=== PATIENT | female | born 1975 | race American Indian/Alaskan Native ===

== ENCOUNTER 2017-03-27 23:23 | Observation (INO) | payer SELFPAY ==
--- NOTE | 2017-03-27 23:45 | ED PDOC ---
HPI: Psych/Substance Abuse Time Seen by Provider: 03/27/17 23:44 Chief Complaint (Nursing): Psychiatric Evaluation Chief Complaint (Provider): staring and not talking ED Caveat: Altered Mental Status Additional Complaint(s): No history obtainable from pt. Refusing to answer questions. EMS reports that she had been sitting in [employer] all day and when they tried to close, she did not get up and she did not leave or talk. Past Medical History Reviewed: Nursing Documentation, Vital Signs, Unable To Obtain (Pt not giving any history) Vital Signs: Last Vital Signs Temp 98 F 03/27/17 23:31 Pulse 108 H 03/27/17 23:31 Resp 18 03/27/17 23:31 BP 136/83 03/27/17 23:31 Pulse Ox 100 03/27/17 23:31 - Family History Family History: States: Unknown Family Hx - Allergies Allergies/Adverse Reactions: Allergies Allergy/AdvReac Type Severity Reaction Status Date / Time No Known Allergies Allergy Verified 01/04/17 23:22 Review of Systems Review Of Systems: ROS cannot be obtained secondary to pt's inabilty to answer questions. (unable to determine if pt unable to answer or refusing to answer any questions) Physical Exam - Reviewed Nursing Documentation Reviewed: Yes Vital Signs Reviewed: Yes - Physical Exam Appears: Positive for: Non-toxic, No Acute Distress Head Exam: Positive for: ATRAUMATIC, NORMOCEPHALIC Skin: Positive for: Warm, Dry Eye Exam: Positive for: EOMI, PERRL ENT: Positive for: Normal ENT Inspection Neck: Positive for: Painless ROM, Supple, Trachea Midline Cardiovascular/Chest: Positive for: Chest Non Tender, Tachycardia (regular rhythm) Respiratory: Positive for: Normal Breath Sounds. Negative for: Respiratory Distress Gastrointestinal/Abdominal: Positive for: Soft. Negative for: Tenderness Back: Positive for: Normal Inspection. Negative for: Vertebral Tenderness Extremity: Negative for: Pedal Edema, Deformity Lymphatic: Negative for: Adenopathy Neurologic/Psych: Positive for: Alert, Mood/Affect (flat, uncooperative with questioning). Negative for: Motor/Sensory Deficits - Laboratory Results Result Diagrams: 03/28/17 00:03 03/28/17 00:03 - ECG O2 Sat by Pulse Oximetry: 100 Disposition - Clinical Impression Clinical Impression: Mood disorder - Disposition Disposition: Transfer of Care Disposition Time: 00:00 Condition: STABLE Patient Signed Over To: Hermes Sim Y Handoff Comments: Pending ER workup, crisis eval, reassessment and final ER dispo
[2017-03-28 00:34] LABS: ALB/GLOB RATIO 1.3 (1.0-2.1); ALBUMIN 4.5 g/dL (3.5-5.0); ALT/SGPT 33 U/L (9-52); AST/SGOT 27 U/L (14-36); BLOOD UREA NITROGEN 12 mg/dl (7-17); CALCIUM 9.4 mg/dL (8.4-10.2); GFR AFRICAN-AMERICAN > 60; GFR NON-AFRICAN AMERICAN > 60
[2017-03-28] MEDS ORDERED: Potassium Chloride 20 mEq ER Tab PO ONE ×2 (01:09→01:13)
--- NOTE | 2017-03-28 01:56 | ED PDOC ---
- Laboratory Results Result Diagrams: 03/28/17 00:03 03/28/17 00:03 - ECG O2 Sat by Pulse Oximetry: 100 (RA) Pulse Ox Interpretation: Normal Medical Decision Making Medical Decision Making: Time:24:00 Patient was transferred to [place] from Chinyere Vásqeuz MD. Pending bed at [facility]. Time:01:13 Bloodwork shows potassium is slightly low Time: 00:51 CT head without IV contrast FINDINGS: Brain: No acute intracranial hemorrhage. No significant white matter disease. No edema. Ventricles: No significant ventriculomegaly. Bones: No acute displaced fracture. Sinuses: Unremarkable as visualized. No acute sinusitis. Mastoid air cells: Unremarkable as visualized. No mastoid effusion. IMPRESSION: No acute intracranial hemorrhage, or suspicious mass effect --Patient is medically cleared for crisis evaluation Time:04:37 --Patient to be screened by [facility]. Pending screening. Time:07:00 --Patient is transferred to dr li. Pending bed at [facility]. Scribe Attestation: Documented by Margoth Rodríguez, acting as a scribe for Hermes Sim MD. Provider Scribe Attestation: All medical record entries made by the Scribe were at my direction and personally dictated by me. I have reviewed the chart and agree that the record accurately reflects my personal performance of the history, physical exam, medical decision making, and the department course for this patient. I have also personally directed, reviewed, and agree with the discharge instructions and disposition. Disposition - Clinical Impression Clinical Impression: Mood disorder - POA Present On Arrival: None - Disposition Disposition: Transfer of Care Disposition Time: 07:00 Condition: STABLE Patient Signed Over To: Miguel Li
[2017-03-28 02:26] LABS: BASO % 0.6 % (0.0-2.0); EOS % 0.9 % (0.0-4.0); HEMOGLOBIN 12.5 g/dL (12.0-16.0); LYMPH # 1.4 K/uL (1.0-4.3); LYMPH % 28.7 % (20.0-40.0); MEAN CELL VOLUME 88.6 fl (81.0-99.0); MEAN CORPUSCULAR HEMOGLOBIN 29.8 pg (27.0-31.0); MEAN CORPUSCULAR HGB CONC 33.7 g/dL (33.0-37.0); MEAN PLATELET VOLUME 8.4 fl (7.2-11.7); MONO # 0.5 K/uL (0.0-0.8); MONO % 9.8 % (0.0-10.0); NEUT # 2.9 K/uL (1.8-7.0); RBC 4.2 Mil/uL (3.80-5.20); RED CELL DISTRIBUTION WIDTH 14.3 % (11.5-14.5); WHITE BLOOD COUNT 4.9 K/uL (4.8-10.8)
[2017-03-28 03:49] LABS: BARBITURATES, UR NEGATIVE (NEGATIVE); BENZODIAZEPINES, UR NEGATIVE (NEGATIVE); OPIATES, UR NEGATIVE (NEGATIVE); PHENCYCLIDINE, UR NEGATIVE (NEGATIVE)
--- NOTE | 2017-03-28 07:17 | ED PDOC ---
- Laboratory Results Result Diagrams: 03/28/17 00:03 03/28/17 00:03 - ECG O2 Sat by Pulse Oximetry: 100 Medical Decision Making Medical Decision Makin:00 Patient signed out to me by Dr. Sim. Pending Bed at [facility] [place]. Disposition - Clinical Impression Clinical Impression: Encounter for medical clearance for patient hold - POA Present On Arrival: None - Disposition Disposition: Transfer of Care Disposition Time: 10:52 Patient Signed Over To: Delvin Londono
[2017-03-28 08:49] VITALS: RESP 20
[2017-03-28 09:14] LABS: URINE APPEARANCE CLOUDY (CLEAR); URINE COLOR AMBER (YELLOW); URINE GLUCOSE (UA) NEGATIVE (Normal)
[2017-03-28 09:15] LABS: URINE BILIRUBIN NEGATIVE (NEGATIVE); URINE BLOOD LARGE (NEGATIVE); URINE PROTEIN 100 mg/dL (NEGATIVE)
[2017-03-28 09:16] LABS: URINE LEUKOCYTE ESTERASE SMALL Leu/uL (Negative); URINE NITRATE NEGATIVE (NEGATIVE)
[2017-03-28 09:17] LABS: SQUAMOUS EPITHIAL 18 /hpf (0-5)
[2017-03-28 09:18] LABS: URINE AMORPHOUS SEDIMENT OCC /ul (<OCC); URINE BACTERIA OCC (<OCC)
[2017-03-28] MEDS ORDERED: Tmp-Smz 800 mg-160 mg DS Tab PO STA (09:22)
[2017-03-28] MEDS ORDERED: Tmp-Smz 800 mg-160 mg DS Tab ONE (09:27)
--- NOTE | 2017-03-28 10:32 | CT ---
PROCEDURE: CT HEAD WITHOUT CONTRAST. HISTORY: ams COMPARISON: None available. TECHNIQUE: Axial computed tomography images were obtained through the head/brain without intravenous contrast. Radiation dose: Total exam DLP = 831.59 mGy-cm. This CT exam was performed using one or more of the following dose reduction techniques: Automated exposure control, adjustment of the mA and/or kV according to patient size, and/or use of iterative reconstruction technique. FINDINGS: HEMORRHAGE: No intracranial hemorrhage. BRAIN: No mass effect or edema. No atrophy or chronic microvascular ischemic changes. VENTRICLES: Unremarkable. No hydrocephalus. CALVARIUM: Unremarkable. PARANASAL SINUSES: Mild mucosal thickening seen in the 1 or 2 left ethmoid air cells. . MASTOID AIR CELLS: Unremarkable as visualized. No inflammatory changes. OTHER FINDINGS: None. IMPRESSION: No acute intracranial hemorrhage.
--- NOTE | 2017-03-28 11:00 | ED PDOC ---
- Laboratory Results Result Diagrams: 03/28/17 00:03 03/28/17 00:03 - ECG O2 Sat by Pulse Oximetry: 100 - Progress ED Course And Treament: 1059: Pending [facility] [place]. 1400: Stable. AAOx3. Does not meet admit criteria by [facility] screener. Will dc. Disposition - Clinical Impression Clinical Impression: Hypokalemia, Mood disorder - POA Present On Arrival: None - Disposition Disposition: Routine/Home Disposition Time: 14:01 Condition: STABLE
--- NOTE | 2017-03-28 11:17 | RAD ---
HISTORY: psych screen COMPARISON: KeyNo prior. TECHNIQUE: Chest PA and lateral FINDINGS: LUNGS: No focal consolidation. There does appear to be some minor localized tenting of the mid aspect left hemidiaphragm associated with adjacent minimal parenchymal scarring PLEURA: No significant pleural effusion identified. No pneumothorax apparent. CARDIOVASCULAR: Normal. OSSEOUS STRUCTURES: Minor multilevel degenerative spondylosis of the thoracic spine questionable side bending to the right versus minimal levoscoliosis centered in the upper thoracic region VISUALIZED UPPER ABDOMEN: Normal. OTHER FINDINGS: None. IMPRESSION: No focal consolidation. There does appear to be some minor localized tenting of the mid aspect left hemidiaphragm associated with adjacent minimal parenchymal scarring
[2017-03-28 14:39] VITALS: BP 110/78; PULSE 78; TEMP 97.7
[2017-03-28 15:41] VITALS: O2SAT 100
--- NOTE | 2017-03-29 06:50 | CARD ---
APPROVED REPORT EKG Measurement Heart [id number] <Conclusion> Normal sinus rhythm Normal ECG
== END 2017-03-28 14:38 | disposition home or self-care (01) ==
LOC: H.ER 23:23 → H.EROBSV 03-28 04:36
PROVIDERS: ADMIT Psychiatry & Neurology Psychiatry; ATTEND Psychiatry & Neurology Psychiatry
DX: F39 Unspecified mood [affective] disorder (principal); E87.6 Hypokalemia
CPT/HCPCS: 70450; 71020; 80053; 81003; 81025; 82948; 85025; 93005; 99285; G0378; G0480

== ENCOUNTER 2017-03-29 18:35 | Inpatient (IN) | payer SELFPAY ==
[2017-03-29 18:39] VITALS: RESP 18; O2SAT 100
--- NOTE | 2017-03-29 19:40 | ED PDOC ---
HPI: Psych/Substance Abuse Time Seen by Provider: 03/29/17 18:42 Chief Complaint (Nursing): Psychiatric Evaluation Chief Complaint (Provider): Crisis evaluation History Per: Patient History/Exam Limitations: no limitations Additional Complaint(s): The pt is a 41yo female, brought to the ED by EMS for evaluation of strange behaviour. [place]; she currently denies any alcohol use, drug use. Patient was recently seen in the ED for psychosis. She denies any suicidal or homicidal ideation. Of note, while interviewing, pt started to speak in another languae and would not answer what language she was speaking in. Past Medical History Reviewed: Historical Data, Nursing Documentation, Vital Signs Vital Signs: Last Vital Signs Temp 98.1 F 03/29/17 18:37 Pulse 108 H 03/29/17 18:37 Resp 18 03/29/17 18:37 BP 112/89 03/29/17 18:37 Pulse Ox 100 03/29/17 18:37 - Medical History PMH: Denies: Diabetes, Hepatitis, HIV, HTN, Seizures, Sexually Transmitted Disease - Family History Family History: States: Unknown Family Hx - Allergies Allergies/Adverse Reactions: Allergies Allergy/AdvReac Type Severity Reaction Status Date / Time No Known Allergies Allergy Verified 01/04/17 23:22 Review of Systems Psych: Negative for: Suicidal ideation, Other (homicidal ideation) Physical Exam - Reviewed Nursing Documentation Reviewed: Yes Vital Signs Reviewed: Yes - Physical Exam Appears: Positive for: No Acute Distress Head Exam: Positive for: ATRAUMATIC, NORMAL INSPECTION, NORMOCEPHALIC Skin: Positive for: Normal Color Eye Exam: Positive for: Normal appearance Neck: Positive for: Normal Cardiovascular/Chest: Positive for: Regular Rate, Rhythm Respiratory: Negative for: Respiratory Distress Extremity: Positive for: Normal ROM. Negative for: Deformity, Swelling Neurologic/Psych: Positive for: Alert. Negative for: Motor/Sensory Deficits - Laboratory Results Result Diagrams: 03/29/17 20:00 03/29/17 20:00 - ECG O2 Sat by Pulse Oximetry: 100 (RA) Pulse Ox Interpretation: Normal Medical Decision Making Medical Decision Making: Time: Impression: Psychosis Ddx include schizophrenia, delusional psychosis, malingering Plan: -- Crisis evaluation - previous note reviewed, pt was evaluated at prior visit and was screened for involuntary admission; did not meet criteria so was d/c home. -- Bloodwork -- ED Urine Dipstick -- Reassess No clinically significant lab abnormalities. Medically stable for psychiatric hospitalization Scribe Attestation: Documented by Danelle Du acting as a scribe for Chinyere Vásquez MD. Provider Attestation: All medical record entries made by the Scribe were at my direction and personally dictated by me. I have reviewed the chart and agree that the record accurately reflects my personal performance of the history, physical exam, medical decision making, and the department course for this patient. I have also personally directed, reviewed, and agree with the discharge instructions and disposition. ED OBSERVATION Date of observation admission: 03/29/17 Time of observation admission: 20:45 - Observation admission statement Patient is being placed in observation because:: Pt awaiting [facility] screening. - Progress Note Progress Note: Pt medically stable. 12am Endorsed to Dr Gaxiola. Pending [facility] evaluation. Disposition - Clinical Impression Clinical Impression: Mood disorder - Patient ED Disposition Is Patient to be Admitted: Transfer of Care - Disposition Disposition Time: 20:45 Condition: STABLE
[2017-03-29 20:16] LABS: BASO % 0.5 % (0.0-2.0); EOS # 0.1 K/uL (0.0-0.7); EOS % 1.4 % (0.0-4.0); LYMPH # 1.5 K/uL (1.0-4.3); LYMPH % 24.4 % (20.0-40.0); MEAN CELL VOLUME 89.3 fl (81.0-99.0); MEAN CORPUSCULAR HEMOGLOBIN 28.9 pg (27.0-31.0); MEAN CORPUSCULAR HGB CONC 32.3 g/dL (33.0-37.0); MEAN PLATELET VOLUME 7.9 fl (7.2-11.7); MONO # 0.5 K/uL (0.0-0.8); MONO % 8.7 % (0.0-10.0); NEUT # 3.9 K/uL (1.8-7.0); NRBC % 0.1 % (0.0-0.0); RBC 4.52 Mil/uL (3.80-5.20); RED CELL DISTRIBUTION WIDTH 14.4 % (11.5-14.5)
[2017-03-29 20:25] LABS: SALICYLATE < 1.0 mg/dl
[2017-03-29 20:26] LABS: ACETAMINOPHEN < 10.0 ug/ml (10.0-30.0); ALB/GLOB RATIO 1.2 (1.0-2.1); ALBUMIN 4.8 g/dL (3.5-5.0); ALT/SGPT 47 U/L (9-52); AST/SGOT 27 U/L (14-36); BLOOD UREA NITROGEN 13 mg/dl (7-17); CALCIUM 9.8 mg/dL (8.4-10.2); GFR AFRICAN-AMERICAN > 60; GFR NON-AFRICAN AMERICAN > 60
[2017-03-29 20:47] LABS: BARBITURATES, UR NEGATIVE (NEGATIVE); BENZODIAZEPINES, UR NEGATIVE (NEGATIVE); OPIATES, UR NEGATIVE (NEGATIVE); PHENCYCLIDINE, UR NEGATIVE (NEGATIVE)
[2017-03-29 20:50] LABS: SQUAMOUS EPITHIAL 3 /hpf (0-5); URINE BACTERIA RARE (<OCC); URINE BILIRUBIN SMALL (NEGATIVE); URINE BLOOD LARGE (NEGATIVE); URINE CLARITY CLOUDY (Clear); URINE COLOR AMBER (YELLOW); URINE GLUCOSE (UA) NEG (Normal); URINE LEUKOCYTE ESTERASE SMALL Leu/uL (Negative); URINE NITRATE NEGATIVE (NEGATIVE); URINE PROTEIN 100 mg/dL (NEGATIVE)
[2017-03-30] MEDS ORDERED: Tmp-Smz 800 mg-160 mg DS Tab PO STA (03:14)
[2017-03-30] MEDS ORDERED: Tmp-Smz 800 mg-160 mg DS Tab ONE (03:21)
--- NOTE | 2017-03-30 05:29 | ED PDOC ---
- Laboratory Results Result Diagrams: 03/29/17 20:00 03/29/17 20:00 - ECG O2 Sat by Pulse Oximetry: 100 (RA) Medical Decision Making Medical Decision Making: [facility] [place] does not meet criteria for screening. Pt. cleared to be discharged. Medically and psychiatrically stable. Disposition - Clinical Impression Clinical Impression: Mood disorder - POA Present On Arrival: None - Disposition Disposition: Routine/Home Disposition Time: 05:29 Condition: STABLE
[2017-03-30 06:34] VITALS: BP 116/74; PULSE 84; TEMP 97.9
== END 2017-03-30 06:20 | disposition home or self-care (01) | DRG 885 ==
LOC: H.ER 18:35 → H.EROBSV 20:44
PROVIDERS: ADMIT Emergency Medicine; ATTEND Emergency Medicine
DX: F39 Unspecified mood [affective] disorder (principal); F29 Unspecified psychosis not due to a substance or known physiological condition

== ENCOUNTER 2017-04-03 03:07 | Observation (INO) | payer SELFPAY ==
[2017-04-03 03:23] VITALS: TEMP 97.6; O2SAT 100
--- NOTE | 2017-04-03 03:59 | ED PDOC ---
HPI: General Adult Time Seen by Provider: 04/03/17 03:42 Chief Complaint (Nursing): Medical Clearance Chief Complaint (Provider): "I just want to sleep" History Per: Patient Additional Complaint(s): Pt found sleeping on a bench by a bystander as per EMS. Pt was found shivering. Pt is undomiciled Pt calm and cooperative with journalists and other writers, offers no complaints. reports that she just needs an indoor space to sleep Past Medical History Reviewed: Nursing Documentation, Vital Signs Vital Signs: Last Vital Signs Temp 97.6 F 04/03/17 03:20 Pulse 104 H 04/03/17 03:20 Resp 18 04/03/17 03:20 BP 115/81 04/03/17 03:20 Pulse Ox 100 04/03/17 03:59 - Medical History PMH: Denies: Diabetes, Hepatitis, HIV, HTN, Seizures, Sexually Transmitted Disease - Surgical History Surgical History: No Surg Hx - Family History Family History: States: Unknown Family Hx - Living Arrangements Living Arrangements: Other - Allergies Allergies/Adverse Reactions: Allergies Allergy/AdvReac Type Severity Reaction Status Date / Time No Known Allergies Allergy Verified 01/04/17 23:22 Review of Systems ROS Statement: Except As Marked, All Systems Reviewed And Found Negative Physical Exam - Reviewed Nursing Documentation Reviewed: Yes Vital Signs Reviewed: Yes - Physical Exam Appears: Positive for: Well, Non-toxic, No Acute Distress Head Exam: Positive for: ATRAUMATIC, NORMAL INSPECTION, NORMOCEPHALIC Skin: Positive for: Normal Color, Warm, DRY Eye Exam: Positive for: EOMI, Normal appearance, PERRL ENT: Positive for: Normal ENT Inspection Neck: Positive for: Normal, Painless ROM Cardiovascular/Chest: Positive for: Regular Rate, Rhythm Respiratory: Positive for: CNT, Normal Breath Sounds Gastrointestinal/Abdominal: Positive for: Normal Exam, Bowel Sounds, Soft Back: Positive for: Normal Inspection Extremity: Positive for: Normal ROM Neurologic/Psych: Positive for: Alert, Oriented - ECG O2 Sat by Pulse Oximetry: 100 Medical Decision Making Medical Decision Making: remained asleep in ED overnight. stable fro discharge in am Disposition - Clinical Impression Clinical Impression: Normal exam - Patient ED Disposition Is Patient to be Admitted: No - Disposition Disposition: Routine/Home Disposition Time: 05:25 Condition: STABLE - POA Present On Arrival: None
[2017-04-03 06:08] VITALS: BP 125/80; PULSE 86; RESP 16
== END 2017-04-03 06:45 | disposition home or self-care (01) ==
LOC: H.ER 03:07 → H.EROBSV 03:59
PROVIDERS: ADMIT Emergency Medicine; ATTEND Emergency Medicine
DX: Z71.1 Person with feared health complaint in whom no diagnosis is made (principal); Z59.0 Homelessness; Z76.5 Malingerer [conscious simulation]
CPT/HCPCS: 99281; G0378

== ENCOUNTER 2017-04-08 23:47 | Emergency (ER) | payer SELFPAY ==
[2017-04-08 23:49] VITALS: BMI 21.2
[2017-04-09 00:02] VITALS: RESP 18; O2SAT 99
--- NOTE | 2017-04-09 02:09 | ED PDOC ---
HPI: Psych/Substance Abuse Time Seen by Provider: 04/08/17 23:59 Chief Complaint (Nursing): Psychiatric Evaluation Chief Complaint (Provider): Psychiatric Evaluation History Per: Patient History/Exam Limitations: no limitations Onset/Duration Of Symptoms: Hrs Suicide/Self Injury Attempted (Context): None Modifying Factor(s): None Additional Complaint(s): 41 y/o female patient presenting to the ED with bizarre behavior. PT was referred to the ED after a bystander noticed the PT acting bizarre and staring with a blank face appearing preoccupied. PT denies any medical complaints and denies hallucinations, suicidal ideations. PT has a past medical history of delusional disorder and is currently homeless and is well known to the provider. Past Medical History Reviewed: Historical Data, Nursing Documentation, Vital Signs Vital Signs: Last Vital Signs Temp 98 F 04/09/17 00:00 Pulse 78 04/09/17 00:00 Resp 18 04/09/17 00:00 BP 123/76 04/09/17 00:00 Pulse Ox 99 04/09/17 00:00 - Medical History PMH: Denies: Diabetes, Hepatitis, HIV, HTN, Seizures, Sexually Transmitted Disease Other PMH: (+)Delusional Disorder - Surgical History Surgical History: No Surg Hx - Family History Family History: States: Unknown Family Hx - Allergies Allergies/Adverse Reactions: Allergies Allergy/AdvReac Type Severity Reaction Status Date / Time No Known Allergies Allergy Verified 01/04/17 23:22 Review of Systems ROS Statement: Except As Marked, All Systems Reviewed And Found Negative Physical Exam - Reviewed Nursing Documentation Reviewed: Yes Vital Signs Reviewed: Yes - Physical Exam Appears: Positive for: Non-toxic, No Acute Distress Neurologic/Psych: Positive for: Alert, Oriented, Other ((+)Unkempt ). Negative for: Motor/Sensory Deficits - ECG O2 Sat by Pulse Oximetry: 99 (RA) Pulse Ox Interpretation: Normal Medical Decision Making Medical Decision Making: Time: 0000 Initial impression: Initial plan: --Crisis Evaluation 29 Re-Assess/Discharge: PT evaluated by crisis: stable for discharge. Diagnosis: Delusional Disorder Referred to mental health clinic. Scribe Attestation: Documented by Majo Love, acting as a scribe for Michael Garcia MD. Scribe Attestation: All medical record entries made by the Scribe were at my direction and personally dictated by me. I have reviewed the chart and agree that the record accurately reflects my personal performance of the history, physical exam, medical decision making, and the department course for this patient. I have also personally directed, reviewed, and agree with the discharge instructions and disposition. Disposition - Clinical Impression Clinical Impression: Delusional disorder - Patient ED Disposition Is Patient to be Admitted: No - Disposition Referrals: [facility] [Outside] [facility] [Outside] Disposition: Routine/Home Disposition Time: 00:30 Condition: STABLE
[2017-04-09 05:59] VITALS: BP 126/78; PULSE 81; TEMP 98.4
== END 2017-04-09 06:36 | disposition home or self-care (01) ==
LOC: H.ER 23:47
DX: F22 Delusional disorders (principal); Z59.0 Homelessness

== ENCOUNTER 2017-04-09 21:57 | Emergency (ER) | payer SELFPAY ==
[2017-04-09 21:57] VITALS: BMI 21.2
--- NOTE | 2017-04-09 23:14 | ED PDOC ---
HPI: General Adult Time Seen by Provider: 04/09/17 22:13 Chief Complaint (Nursing): Abdominal Pain History Per: Patient Additional Complaint(s): Pt. states for the past 20 minutes she's had b/l lower abdominal pain without any other associated symptoms. Denies fever, N/V/D, hematuria, dysuria, vaginal discharge, vaginal bleeding. Last BM "2 weeks ago." Past Medical History Reviewed: Historical Data, Nursing Documentation, Vital Signs Vital Signs: Last Vital Signs Temp 98.0 F 04/09/17 22:03 Pulse 60 04/09/17 22:03 Resp 16 04/09/17 22:03 BP 98/87 L 04/09/17 22:03 Pulse Ox 98 04/10/17 02:32 - Medical History PMH: Denies: Diabetes, Hepatitis, HIV, HTN, Seizures, Sexually Transmitted Disease - Family History Family History: States: No Known Family Hx - Allergies Allergies/Adverse Reactions: Allergies Allergy/AdvReac Type Severity Reaction Status Date / Time No Known Allergies Allergy Verified 01/04/17 23:22 Review of Systems ROS Statement: Except As Marked, All Systems Reviewed And Found Negative Gastrointestinal: Positive for: Abdominal Pain Physical Exam - Reviewed Nursing Documentation Reviewed: Yes Vital Signs Reviewed: Yes - Physical Exam Appears: Positive for: Well, Non-toxic, No Acute Distress Head Exam: Positive for: ATRAUMATIC, NORMAL INSPECTION, NORMOCEPHALIC Skin: Positive for: Normal Color, Warm. Negative for: Rash Eye Exam: Positive for: EOMI, Normal appearance, PERRL ENT: Positive for: Normal ENT Inspection Neck: Positive for: Normal, Painless ROM Cardiovascular/Chest: Positive for: Regular Rate, Rhythm Respiratory: Positive for: CNT, Normal Breath Sounds Gastrointestinal/Abdominal: Positive for: Normal Exam, Bowel Sounds, Soft. Negative for: Tenderness Back: Positive for: Normal Inspection Extremity: Positive for: Normal ROM Neurologic/Psych: Positive for: Alert, Oriented - Laboratory Results Result Diagrams: 04/09/17 23:45 04/09/17 23:45 Urine POC: Negative Urine dip results: Negative for: Leukocyte Esterase, Blood, Nitrate, Ketones, Glucose, Bilirubin, Protein - ECG O2 Sat by Pulse Oximetry: 98 - Progress ED Course And Treament: Labs ordered. Previous records indicate that pt. has had frequent visits to ED this past week exhibiting bed seeking behavior. KDur 40 mEq PO given. On re-evaluation, pt. in no distress. Abd still without tenderness to deep palpation. Disposition - Clinical Impression Clinical Impression: Abdominal pain, Hypokalemia - Patient ED Disposition Is Patient to be Admitted: No - Disposition Disposition: Routine/Home Disposition Time: 00:18 Condition: STABLE Instructions: Hypokalemia (ED), Acute Abdominal Pain (ED) Print Language: NICARAGUAN
[2017-04-09 23:48] LABS: BASO % 0.6 % (0.0-2.0); EOS # 0.1 K/uL (0.0-0.7); EOS % 2.7 % (0.0-4.0); HEMOGLOBIN 11.7 g/dL (12.0-16.0); LYMPH # 1.5 K/uL (1.0-4.3); LYMPH % 33.7 % (20.0-40.0); MEAN CELL VOLUME 87.8 fl (81.0-99.0); MEAN CORPUSCULAR HEMOGLOBIN 28.5 pg (27.0-31.0); MEAN CORPUSCULAR HGB CONC 32.4 g/dL (33.0-37.0); MEAN PLATELET VOLUME 8.6 fl (7.2-11.7); MONO # 0.7 K/uL (0.0-0.8); NEUT # 2.1 K/uL (1.8-7.0); NRBC % 0.2 % (0.0-0.0); RBC 4.12 Mil/uL (3.80-5.20); RED CELL DISTRIBUTION WIDTH 13.9 % (11.5-14.5); WHITE BLOOD COUNT 4.4 K/uL (4.8-10.8)
[2017-04-09 23:58] LABS: ALB/GLOB RATIO 1.2 (1.0-2.1); ALBUMIN 3.8 g/dL (3.5-5.0); ALT/SGPT 58 U/L (9-52); AST/SGOT 30 U/L (14-36); BLOOD UREA NITROGEN 11 mg/dl (7-17); CALCIUM 9.2 mg/dL (8.4-10.2); GFR AFRICAN-AMERICAN > 60; GFR NON-AFRICAN AMERICAN > 60
[2017-04-10] MEDS ORDERED: Potassium Chloride 20 mEq ER Tab PO STA (00:18)
[2017-04-10 12:14] VITALS: BP 98/87; PULSE 60; RESP 16; TEMP 98; O2SAT 98
== END 2017-04-10 06:37 | disposition home or self-care (01) ==
LOC: H.ER 21:57
DX: E87.6 Hypokalemia (principal)

== ENCOUNTER 2017-04-18 01:42 | Emergency (ER) | payer SELFPAY ==
[2017-04-18 01:42] VITALS: BMI 21.2
[2017-04-18 01:49] VITALS: BP 124/68; PULSE 88; RESP 18; TEMP 98; O2SAT 100
--- NOTE | 2017-04-18 02:10 | ED PDOC ---
HPI: General Adult Time Seen by Provider: 04/18/17 02:08 Chief Complaint (Nursing): Lower Extremity Problem/Injury Chief Complaint (Provider): leg pain History Per: Patient Additional Complaint(s): 41 year old non-domiciled female presents to ED with pain to left knee ongoing for about 1 week. She denies any trauma or injury. Patient also states she was caught in the rain and needs a place to rest. Past Medical History Reviewed: Historical Data, Nursing Documentation, Vital Signs Vital Signs: Last Vital Signs Temp 98 F 04/18/17 01:44 Pulse 88 04/18/17 01:44 Resp 18 04/18/17 01:44 BP 124/68 04/18/17 01:44 Pulse Ox 100 04/18/17 02:37 - Medical History Other PMH: h/o delusional disorder - Family History Family History: States: Unknown Family Hx - Living Arrangements Living Arrangements: Other (non-domiciled) - Social History Current smoker - smoking cessation education provided: No Alcohol: None Drugs: Denies - Allergies Allergies/Adverse Reactions: Allergies Allergy/AdvReac Type Severity Reaction Status Date / Time No Known Allergies Allergy Verified 01/04/17 23:22 Review of Systems ROS Statement: Except As Marked, All Systems Reviewed And Found Negative Musculoskeletal: Positive for: Leg Pain (atraumatic pain to left knee) Psych: Negative for: Suicidal ideation Physical Exam - Reviewed Nursing Documentation Reviewed: Yes Vital Signs Reviewed: Yes - Physical Exam Appears: Positive for: Well, Non-toxic, No Acute Distress Skin: Negative for: Rash Eye Exam: Positive for: Normal appearance Cardiovascular/Chest: Positive for: Regular Rate, Rhythm Respiratory: Positive for: Normal Breath Sounds Extremity: Positive for: Other (full rom left knee with pain, no swelling or ecchymosis, no cellulitis, no calf swelling or tenderness). Negative for: Pedal Edema Neurologic/Psych: Positive for: Alert, Oriented, Gait (steady) - ECG O2 Sat by Pulse Oximetry: 100 Pulse Ox Interpretation: Normal Medical Decision Making Medical Decision Makin41 year old non-domiciled male with left leg pain Patient has steady gait, pain meds declined. Patient was referred to clinic for follow up. Disposition - Clinical Impression Clinical Impression: Knee pain - Patient ED Disposition Is Patient to be Admitted: No Counseled Patient/Family Regarding: Diagnosis, Need For Followup - Disposition Referrals: [facility] [Outside] Disposition: Routine/Home Disposition Time: 02:37 Condition: STABLE Additional Instructions: Tylenol as needed for pain. Follow up with clinic. Instructions: Knee Pain (ED)
== END 2017-04-18 06:22 | disposition home or self-care (01) ==
LOC: H.ER 01:42
DX: M25.562 Pain in left knee (principal)

== ENCOUNTER 2017-11-16 21:15 | Emergency (ER) | payer OTHER ==
[2017-11-16 21:15] VITALS: BMI 21.2
[2017-11-16 23:24] VITALS: BP 109/69; PULSE 86; RESP 16; TEMP 98.2; O2SAT 100
== END 2017-11-17 00:10 | disposition left against medical advice (07) ==
LOC: H.ER 21:15
DX: Z02.89 Encounter for other administrative examinations (principal)

== ENCOUNTER 2017-11-18 22:29 | Emergency (ER) | payer OTHER ==
[2017-11-18 22:29] VITALS: BMI 21.2
[2017-11-18 23:15] VITALS: O2SAT 100
--- NOTE | 2017-11-19 01:34 | ED PDOC ---
HPI: CCC, URI, Sore Throat Time Seen by Provider: 11/19/17 01:23 Chief Complaint (Nursing): Flu-like Symptoms Chief Complaint (Provider): cold-symptoms History Per: Patient History/Exam Limitations: no limitations Onset/Duration Of Symptoms: Days (2 weeks), Waxing/Waning Additional Complaint(s): 42 y/o female presents with cold-symptoms x 2 weeks. Patient states she is currently homeless and has been sleeping outside in the cold; reports nasal discharge, sneezing. Denies fever, headache, ear pain, throat pain, chest pain , shortness of breath, abdominal pain. Past Medical History Reviewed: Historical Data, Nursing Documentation, Vital Signs Vital Signs: Last Vital Signs Temp 98.5 F 11/18/17 23:12 Pulse 90 11/18/17 23:12 Resp 16 11/18/17 23:12 BP 110/77 11/18/17 23:12 Pulse Ox 100 11/18/17 23:12 - Medical History PMH: No Chronic Diseases Denies: Diabetes, Hepatitis, HIV, HTN, Seizures, Sexually Transmitted Disease - Surgical History Surgical History: No Surg Hx - Family History Family History: States: Unknown Family Hx - Home Medications Home Medications: Ambulatory Orders Medication Instructions Recorded Fluticasone Nasal [Flonase] 1 actuation NS BID #1 bottle 11/19/17 - Allergies Allergies/Adverse Reactions: Allergies Allergy/AdvReac Type Severity Reaction Status Date / Time levofloxacin [From Levaquin] Allergy RASH Verified 11/18/17 23:11 Review of Systems ROS Statement: Except As Marked, All Systems Reviewed And Found Negative ENT: Positive for: Nose Discharge Physical Exam - Reviewed Nursing Documentation Reviewed: Yes Vital Signs Reviewed: Yes - Physical Exam Appears: Positive for: Well, Non-toxic, No Acute Distress Head Exam: Positive for: ATRAUMATIC, NORMAL INSPECTION, NORMOCEPHALIC Skin: Positive for: Normal Color Eye Exam: Positive for: Normal appearance ENT: Positive for: Normal ENT Inspection Cardiovascular/Chest: Positive for: Regular Rate, Rhythm Respiratory: Positive for: Normal Breath Sounds Gastrointestinal/Abdominal: Positive for: Normal Exam Back: Positive for: Normal Inspection Extremity: Positive for: Normal ROM Neurologic/Psych: Positive for: Alert, Oriented - ECG O2 Sat by Pulse Oximetry: 100 - Progress ED Course And Treament: Patient educated on findings, discharged with rx Flonase Advised follow up PMD 2-3 days. REturn precautions given. Disposition - Clinical Impression Clinical Impression: URI (upper respiratory infection) - Patient ED Disposition Is Patient to be Admitted: No Counseled Patient/Family Regarding: Diagnosis, Need For Followup - Disposition Referrals: [facility] [Outside] Disposition: Routine/Home Disposition Time: 01:34 Condition: GOOD Prescriptions: Fluticasone Nasal [Flonase] 1 actuation NS BID #1 bottle Instructions: Viral Upper Respiratory Infection, Adult (DC)
[2017-11-19 03:53] VITALS: BP 112/66; PULSE 77; RESP 17; TEMP 98.1
== END 2017-11-19 03:50 | disposition home or self-care (01) ==
LOC: H.ER 22:29
DX: J06.9 Acute upper respiratory infection, unspecified (principal); Z59.0 Homelessness

== ENCOUNTER 2017-11-22 20:19 | Emergency (ER) | payer OTHER ==
[2017-11-22 20:20] VITALS: BMI 21.2
[2017-11-22 20:27] VITALS: BP 115/75; PULSE 84; RESP 16; TEMP 99.1; O2SAT 100
--- NOTE | 2017-11-22 21:02 | ED PDOC ---
HPI: General Adult Time Seen by Provider: 11/22/17 20:30 Chief Complaint (Nursing): Cough, Cold, Congestion Chief Complaint (Provider): Congestion History Per: Patient History/Exam Limitations: no limitations Onset/Duration Of Symptoms: Hrs (today) Current Symptoms Are (Timing): Still Present Additional Complaint(s): Doug Ruiz is a 42 year old female, with no significant past medical history , who presents to the emergency department complaining of sinus congestion onset since today. She denies any fever, chills, cough, sore throat, chest pain , shortness of breath, nausea, vomit, diarrhea, abdominal pain, urinary symptoms , flank pain, recent travel or sick contacts. No further medical complaints. PMD: None provided. Past Medical History Reviewed: Historical Data, Nursing Documentation, Vital Signs Vital Signs: Last Vital Signs Temp 99.1 F 11/22/17 20:25 Pulse 84 11/22/17 20:25 Resp 16 11/22/17 20:25 BP 115/75 11/22/17 20:25 Pulse Ox 100 11/22/17 21:06 - Medical History PMH: No Chronic Diseases Denies: Diabetes, Hepatitis, HIV, HTN, Seizures, Sexually Transmitted Disease - Surgical History Surgical History: No Surg Hx - Family History Family History: States: Unknown Family Hx - Home Medications Home Medications: Ambulatory Orders Medication Instructions Recorded Fluticasone Nasal [Flonase] 1 actuation NS BID #1 bottle 11/19/17 Fluticasone Propionate [Flonase] 2 spr FRANTZ DAILY #1 bottle 11/22/17 Pseudoephedrine [Sudafed Tab] 30 mg PO Q6H PRN #20 tab 11/22/17 - Allergies Allergies/Adverse Reactions: Allergies Allergy/AdvReac Type Severity Reaction Status Date / Time levofloxacin [From Levaquin] Allergy RASH Verified 11/18/17 23:11 Review of Systems ROS Statement: Except As Marked, All Systems Reviewed And Found Negative Constitutional: Negative for: Fever, Chills ENT: Positive for: Other (sinus congestion). Negative for: Throat Pain Cardiovascular: Negative for: Chest Pain Respiratory: Negative for: Cough, Shortness of Breath Gastrointestinal: Negative for: Nausea, Vomiting, Abdominal Pain, Diarrhea Genitourinary Female: Negative for: Dysuria, Frequency, Incontinence Musculoskeletal: Negative for: Back Pain Physical Exam - Reviewed Nursing Documentation Reviewed: Yes Vital Signs Reviewed: Yes - Physical Exam Comments: GENERAL APPEARANCE: Patient is awake, alert, oriented x 3, in no acute distress. SKIN: Warm, dry; (-) cyanosis, (-) rash. (-) Decubitus Ulcer EYES: (-) conjunctival pallor, (-) scleral icterus, (-) conjunctival hemorrhage. ENMT: Mucous membranes moist. TMs: (-) erythema. Airway patent: (-) stridor. Pharynx: (-) erythema, (-) exudate. NECK: (-) tenderness, (-) stiffness, (-) meningismus, (-) lymphadenopathy. CHEST AND RESPIRATORY: (-) accessory muscle use. Lungs: (-) rales, (-) rhonchi, (-) wheezes, (-) rub; breath sounds equal bilaterally. HEART AND CARDIOVASCULAR: (-) irregularity; (-) murmur, (-) gallop, (-) rub. ABDOMEN AND GI: Soft; (-) tenderness, (-) guarding; (-) organomegaly; (-) mass ; (-) CVA tenderness. EXTREMITIES: (-) deformity; (-) cellulitis, (-) lymphangitis; (-) subungual hemorrhage; (-) edema. NEURO AND PSYCH: Mental status as above; (-) focal findings. - ECG O2 Sat by Pulse Oximetry: 100 (RA) Pulse Ox Interpretation: Normal Medical Decision Making Medical Decision Making: Initial Impression: sinus congestion, URI Advised to follow up with primary care physician in 1-2 days without fail. Advised to take medication as prescribed. Return to the emergency room at any time for any new or worsening symptoms. Patient states she fully agrees with and understands discharge instructions. States that she agrees with the plan and disposition. Verbalized and repeated discharge instructions and plan. I have given the patient opportunity to ask any additional questions. ~ Scribe Attestation: Documented by Louis Palomares, acting as a scribe for Tri Messina PA-C. Provider Scribe Attestation: All medical record entries made by the Scribe were at my direction and personally dictated by me. I have reviewed the chart and agree that the record accurately reflects my personal performance of the history, physical exam, medical decision making, and the department course for this patient. I have also personally directed, reviewed, and agree with the discharge instructions and disposition. Disposition - Clinical Impression Clinical Impression: Nasal sinus congestion, URI (upper respiratory infection) - Patient ED Disposition Is Patient to be Admitted: No Counseled Patient/Family Regarding: Diagnosis, Need For Followup, Rx Given - Disposition Referrals: [facility] [Outside] Disposition: Routine/Home Disposition Time: 20:45 Condition: STABLE Additional Instructions: Thank you for letting us take care of you today. You were treated for sinus congestion, URI. The emergency medical care you received today was directed at your acute symptoms. If you were prescribed any medication, please fill it and take as directed. It may take several days for your symptoms to resolve. Return to the Emergency Department if your symptoms worsen, do not improve, or if you have any other problems. Please contact your doctor in 2 days for re-evaluation and follow up / or call one of the physicians/clinics you have been referred to that are listed on the Patient Visit Information form that is included in your discharge packet. Bring any paperwork you were given at discharge with you along with any medications you are taking to your follow up visit. Our treatment cannot replace ongoing medical care by a primary care provider (PCP) outside of the emergency department. Thank you for allowing the [email or web address] team to be part of your care today. 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
== END 2017-11-22 21:10 | disposition home or self-care (01) ==
LOC: H.ER 20:19
DX: J06.9 Acute upper respiratory infection, unspecified (principal); R09.81 Nasal congestion

== ENCOUNTER 2017-11-24 00:12 | Emergency (ER) | payer OTHER ==
[2017-11-24 00:13] VITALS: BMI 21.2
[2017-11-24 01:15] VITALS: O2SAT 100
--- NOTE | 2017-11-24 01:34 | ED PDOC ---
HPI: General Adult Time Seen by Provider: 11/24/17 01:07 Chief Complaint (Nursing): Medical Clearance Chief Complaint (Provider): feeling cold Additional Complaint(s): 42 y/o nondomiciled female presents to ED stating she is cold. Requesting bed to warm up in for a little. Denies acute medical or psychiatric complaints. Past Medical History Reviewed: Historical Data, Nursing Documentation, Vital Signs Vital Signs: Last Vital Signs Temp 98.2 F 11/24/17 01:12 Pulse 77 11/24/17 01:12 Resp 18 11/24/17 01:12 BP 112/78 11/24/17 01:12 Pulse Ox 100 11/24/17 01:33 - Medical History PMH: No Chronic Diseases Denies: Diabetes, Hepatitis, HIV, HTN, Seizures, Sexually Transmitted Disease - Surgical History Surgical History: No Surg Hx - Family History Family History: States: Unknown Family Hx - Home Medications Home Medications: Ambulatory Orders Medication Instructions Recorded Fluticasone Nasal [Flonase] 1 actuation NS BID #1 bottle 11/19/17 Fluticasone Propionate [Flonase] 2 spr FRANTZ DAILY #1 bottle 11/22/17 Pseudoephedrine [Sudafed Tab] 30 mg PO Q6H PRN #20 tab 11/22/17 - Allergies Allergies/Adverse Reactions: Allergies Allergy/AdvReac Type Severity Reaction Status Date / Time broccoli Allergy RASH Verified 11/24/17 01:12 levofloxacin [From Levaquin] Allergy RASH Verified 11/18/17 23:11 Review of Systems ROS Statement: Except As Marked, All Systems Reviewed And Found Negative Physical Exam - Reviewed Nursing Documentation Reviewed: Yes Vital Signs Reviewed: Yes - Physical Exam Appears: Positive for: Well, Non-toxic, No Acute Distress Head Exam: Positive for: ATRAUMATIC, NORMAL INSPECTION, NORMOCEPHALIC Skin: Positive for: Normal Color Eye Exam: Positive for: Normal appearance ENT: Positive for: Normal ENT Inspection Cardiovascular/Chest: Positive for: Regular Rate, Rhythm Respiratory: Positive for: Normal Breath Sounds Gastrointestinal/Abdominal: Positive for: Normal Exam Back: Positive for: Normal Inspection Extremity: Positive for: Normal ROM Neurologic/Psych: Positive for: Alert, Oriented - ECG O2 Sat by Pulse Oximetry: 100 Disposition - Clinical Impression Clinical Impression: Normal exam - Patient ED Disposition Is Patient to be Admitted: No Counseled Patient/Family Regarding: Diagnosis, Need For Followup - Disposition Disposition: Routine/Home Disposition Time: 03:23 Condition: GOOD
[2017-11-24 06:01] VITALS: BP 115/46; PULSE 87; RESP 16; TEMP 98.8
== END 2017-11-24 06:05 | disposition home or self-care (01) ==
LOC: H.ER 00:12
DX: Z00.00 Encounter for general adult medical examination without abnormal findings (principal)

== ENCOUNTER 2017-11-24 21:33 | Emergency (ER) | payer OTHER ==
[2017-11-24 21:33] VITALS: BMI 21.2
[2017-11-24 21:41] VITALS: BP 102/72; PULSE 77; RESP 16; TEMP 97.9; O2SAT 99
--- NOTE | 2017-11-24 22:54 | ED PDOC ---
HPI: CCC, URI, Sore Throat Time Seen by Provider: 11/24/17 21:43 Chief Complaint (Nursing): Flu-like Symptoms Chief Complaint (Provider): cold symptoms History Per: Patient Additional Complaint(s): 42 y/o female presents with cold-symptoms x 2 weeks. Patient states "I have hypothermia, pneumonia, and sinus problems". Patient sleeping in exam chair; upon awakening states she has not filled previous prescribed medications because they will make her "sleepy"; when asked which medications, patient replies "I don't know". Denies fever, chest pain, shortness of breath, palpitations, recent travel, sick contacts. Of note, patient with multiple ED visits this month, known to ED and development writer for bed-seeking behavior Past Medical History Reviewed: Historical Data, Nursing Documentation, Vital Signs Vital Signs: Last Vital Signs Temp 97.9 F 11/24/17 21:37 Pulse 77 11/24/17 21:37 Resp 16 11/24/17 21:37 BP 102/72 11/24/17 21:37 Pulse Ox 99 11/24/17 22:56 - Medical History PMH: No Chronic Diseases Denies: Diabetes, Hepatitis, HIV, HTN, Seizures, Sexually Transmitted Disease - Surgical History Surgical History: No Surg Hx - Family History Family History: States: Unknown Family Hx - Home Medications Home Medications: Ambulatory Orders Medication Instructions Recorded Fluticasone Nasal [Flonase] 1 actuation NS BID #1 bottle 11/19/17 Fluticasone Propionate [Flonase] 2 spr FRANTZ DAILY #1 bottle 11/22/17 Pseudoephedrine [Sudafed Tab] 30 mg PO Q6H PRN #20 tab 11/22/17 - Allergies Allergies/Adverse Reactions: Allergies Allergy/AdvReac Type Severity Reaction Status Date / Time broccoli Allergy RASH Verified 11/24/17 01:12 levofloxacin [From Levaquin] Allergy RASH Verified 11/18/17 23:11 Review of Systems ROS Statement: Except As Marked, All Systems Reviewed And Found Negative ENT: Positive for: Nose Congestion Respiratory: Positive for: Cough Physical Exam - Reviewed Nursing Documentation Reviewed: Yes Vital Signs Reviewed: Yes - Physical Exam Appears: Positive for: Well, Non-toxic, No Acute Distress (sleeping) Head Exam: Positive for: ATRAUMATIC, NORMAL INSPECTION, NORMOCEPHALIC Skin: Positive for: Normal Color Eye Exam: Positive for: Normal appearance ENT: Positive for: Normal ENT Inspection Cardiovascular/Chest: Positive for: Regular Rate, Rhythm Respiratory: Positive for: Normal Breath Sounds Gastrointestinal/Abdominal: Positive for: Normal Exam Back: Positive for: Normal Inspection Extremity: Positive for: Normal ROM Neurologic/Psych: Positive for: Alert, Oriented - ECG O2 Sat by Pulse Oximetry: 99 - Radiology X-Ray: Viewed By Me X-Ray Interpretation: No Acute Disease - Progress ED Course And Treament: Patient will multiple visits for vague URI symptoms; will order chest xray Patient educated on findings, advised to fill previous prescriptions. Follow up PMD 2-3 days. REturn precautions given. Patient is stable for discharge. Disposition - Clinical Impression Clinical Impression: URI (upper respiratory infection) - Patient ED Disposition Is Patient to be Admitted: No Counseled Patient/Family Regarding: Studies Performed, Diagnosis, Need For Followup - Disposition Referrals: [facility] [Outside] Disposition: Routine/Home Disposition Time: 23:42 Condition: GOOD Instructions: Viral Upper Respiratory Infection, Adult (DC)
--- NOTE | 2017-11-25 11:47 | RAD ---
HISTORY: cough COMPARISON: Chest radiographs 03/28/2017. TECHNIQUE: Chest PA and lateral FINDINGS: LUNGS: No active pulmonary disease. PLEURA: No significant pleural effusion identified. No pneumothorax apparent. CARDIOVASCULAR: Normal. OSSEOUS STRUCTURES: No significant abnormalities. VISUALIZED UPPER ABDOMEN: Normal. OTHER FINDINGS: None. IMPRESSION: No interval acute cardiopulmonary disease appreciated.
== END 2017-11-25 00:03 | disposition home or self-care (01) ==
LOC: H.ER 21:33
DX: J06.9 Acute upper respiratory infection, unspecified (principal)

== ENCOUNTER 2017-12-20 13:36 | Emergency (ER) | payer MEDICAID ==
[2017-12-20 13:36] VITALS: BMI 21.2
--- NOTE | 2017-12-20 14:02 | ED PDOC ---
HPI:Nausea, Vomiting, Diarrhea Time Seen by Provider: 12/20/17 13:43 Chief Complaint (Nursing): Psychiatric Evaluation Chief Complaint (Provider): Nausea History Per: Patient History/Exam Limitations: no limitations Current Symptoms Are (Timing): Still Present Associated Symptoms: Nausea. denies: Vomiting, Urinary Symptoms Additional Complaint(s): 42yo female, who denies any significant past medical history, presents to ED today stating she felt nauseous earlier this morning while she was sleeping on a porch. She denies any associated abdominal pain, vomiting, diarrhea, weakness , fever, chills, chest pain, SOB, urinary symptoms. Of note, patient is well known to ER and staff for multiple visits with similar presentation and bed seeking behavior. She offers no other medical complaints at this time. Of note, per EMS patient appeared anxious upon their arrival to the scene and was unintelligible, prompting ER visit for psychiatric evaluation. Past Medical History Reviewed: Historical Data, Nursing Documentation, Vital Signs Vital Signs: Last Vital Signs Temp 98.6 F 12/20/17 13:39 Pulse 95 H 12/20/17 13:39 Resp 18 12/20/17 13:39 BP 135/85 12/20/17 13:39 Pulse Ox 99 12/20/17 13:39 - Medical History PMH: Denies: Diabetes, Hepatitis, HIV, HTN, Seizures, Sexually Transmitted Disease - Surgical History Surgical History: No Surg Hx - Family History Family History: States: Unknown Family Hx - Home Medications Home Medications: Ambulatory Orders Medication Instructions Recorded Fluticasone Nasal [Flonase] 1 actuation NS BID #1 bottle 11/19/17 Fluticasone Propionate [Flonase] 2 spr FRANTZ DAILY #1 bottle 11/22/17 Pseudoephedrine [Sudafed Tab] 30 mg PO Q6H PRN #20 tab 11/22/17 - Allergies Allergies/Adverse Reactions: Allergies Allergy/AdvReac Type Severity Reaction Status Date / Time broccoli Allergy RASH Verified 11/24/17 01:12 levofloxacin [From Levaquin] Allergy RASH Verified 11/18/17 23:11 Review of Systems ROS Statement: Except As Marked, All Systems Reviewed And Found Negative Constitutional: Negative for: Fever, Chills, Weakness Gastrointestinal: Positive for: Nausea. Negative for: Vomiting, Abdominal Pain , Diarrhea Physical Exam - Reviewed Nursing Documentation Reviewed: Yes Vital Signs Reviewed: Yes - Physical Exam Comments: GENERAL APPEARANCE: Patient is awake, alert, oriented x 3 however with tangent thoughts, in no acute distress. SKIN: Warm, dry; (-) cyanosis. EYES: (-) conjunctival pallor, (-) scleral icterus, (-) nystagmus. ENMT: Mucous membranes moist. Airway patent: (-) stridor. NECK: Supple, FROM (-) tenderness, (-) stiffness, (-) lymphadenopathy. CHEST AND RESPIRATORY: (-) rales, (-) rhonchi, (-) wheezes; breath sounds equal. ABDOMEN: Soft, (-) distention, (-) tenderness, (-) guarding. NEURO AND PSYCH: Mental status as above. Affect: Flat. Memory: Intact. recreation therapist: Pupils equal and reactive; EOMI; (-) facial asymmetry; tongue and uvula midline. - Laboratory Results Result Diagrams: 12/20/17 17:39 12/20/17 17:39 Urine POC: Negative - ECG ECG: Positive for: Interpreted By Me, Viewed By Me ECG Rhythm: Positive for: Sinus Rhythm (normal axis). Negative for: ST/T Changes Rate: 84 O2 Sat by Pulse Oximetry: 99 (RA) Pulse Ox Interpretation: Normal Medical Decision Making Medical Decision Making: Impression: Nausea Plan: -- UDS -- Upreg -- Zofran 8mg PO -- Crisis evaluation -- 1:1 observation due to elopement risk Time: 1630 Patient seen and evaluated by crisis team and per Dr. Garcia, patient has a diagnosis of psychotic disorder with delusions. [place] [facility] [place] Upreg negative. Following tests to be ordered for screening/admission: -- Chest X-Ray -- EKG -- CBC -- CMP -- Alcohol serum Time: 1721 Patient resting comfortably in stretcher. No acute distress. Time: 1730 Chest X-Ray FINDINGS: LUNGS: No active pulmonary disease. PLEURA: No significant pleural effusion identified. No pneumothorax apparent. CARDIOVASCULAR: Normal. OSSEOUS STRUCTURES: No significant abnormalities. VISUALIZED UPPER ABDOMEN: Normal. OTHER FINDINGS: None. IMPRESSION: No active disease. No significant interval change compared to the prior examination(s). Time: 2009 On re-evaluation, patient denies any additional symptoms at this time. On exam, patient remains AAOx3, in no acute distress. On exam, neck is supple, lungs CTA , cardiac RRR, abdomen is soft and non-tender, neuro exam shows no focal findings. Per patient, nausea resolved. Patient tolerating PO intake in ED without difficulty. Labs reviewed, patient is medically stable for psychiatric evaluation/screening/ admission. Time: 2330 Patient asleep in ED bed, resting comfortably in stretcher. No acute distress noted. Time: 00:00 Case endorsed to Messi Barajas PA-C [place] [facility] [place], re-evaluation, and further disposition. Pertinent details reviewed. Scribe Attestation: Documented by Danelle Du acting as a scribe for ASIA Moody Provider Attestation: All medical record entries made by the Scribe were at my direction and personally dictated by me. I have reviewed the chart and agree that the record accurately reflects my personal performance of the history, physical exam, medical decision making, and the department course for this patient. I have also personally directed, reviewed, and agree with the discharge instructions and disposition. Disposition - Clinical Impression Clinical Impression: Psychotic disorder with delusions, Nausea - Patient ED Disposition Is Patient to be Admitted: Transfer of Care - Disposition Disposition: Transfer of Care (Case endorsed to Messi Barajas PA-C pending re-eval, [facility] [place], and further disposition[place] Disposition Time: 00:00 Condition: FAIR - POA Present On Arrival: None Results - Lab Results Lab Results: 12/20/17 14:10 Urine Opiates Screen Negative Urine Methadone Screen Negative Ur Barbiturates Screen Negative Ur Phencyclidine Scrn Negative Ur Amphetamines Screen Negative U Benzodiazepines Scrn Negative U Oth Cocaine Metabols Negative U Cannabinoids Screen Negative
[2017-12-20 14:41] LABS: BARBITURATES, UR NEGATIVE (NEGATIVE); BENZODIAZEPINES, UR NEGATIVE (NEGATIVE); OPIATES, UR NEGATIVE (NEGATIVE); PHENCYCLIDINE, UR NEGATIVE (NEGATIVE)
--- NOTE | 2017-12-20 17:29 | RAD ---
HISTORY: clearance COMPARISON: 11/24/2017 TECHNIQUE: Chest PA and lateral FINDINGS: LUNGS: No active pulmonary disease. PLEURA: No significant pleural effusion identified. No pneumothorax apparent. CARDIOVASCULAR: Normal. OSSEOUS STRUCTURES: No significant abnormalities. VISUALIZED UPPER ABDOMEN: Normal. OTHER FINDINGS: None. IMPRESSION: No active disease. No significant interval change compared to the prior examination(s).
[2017-12-20 17:51] LABS: BASO % 0.7 % (0.0-2.0); EOS % 0.6 % (0.0-4.0); HEMOGLOBIN 11.4 g/dL (12.0-16.0); LYMPH # 1.5 K/uL (1.0-4.3); LYMPH % 28.1 % (20.0-40.0); MEAN CELL VOLUME 88.7 fl (81.0-99.0); MEAN CORPUSCULAR HEMOGLOBIN 28.9 pg (27.0-31.0); MEAN CORPUSCULAR HGB CONC 32.6 g/dL (33.0-37.0); MEAN PLATELET VOLUME 7.9 fl (7.2-11.7); MONO # 0.5 K/uL (0.0-0.8); MONO % 9.8 % (0.0-10.0); NEUT # 3.2 K/uL (1.8-7.0); NEUT % 60.8 % (50.0-75.0); NRBC % 0.2 % (0.0-0.0); RBC 3.95 Mil/uL (3.80-5.20); RED CELL DISTRIBUTION WIDTH 14.5 % (11.5-14.5); WHITE BLOOD COUNT 5.2 K/uL (4.8-10.8)
[2017-12-20 17:55] LABS: ALB/GLOB RATIO 1.1 (1.0-2.1); ALT/SGPT 32 U/L (9-52); AST/SGOT 33 U/L (14-36); BLOOD UREA NITROGEN 8 mg/dl (7-17); CALCIUM 9.3 mg/dL (8.4-10.2); GFR AFRICAN-AMERICAN > 60; GFR NON-AFRICAN AMERICAN > 60
[2017-12-21 00:05] VITALS: O2SAT 99
[2017-12-21 01:55] LABS: SQUAMOUS EPITHIAL < 1 /hpf (0-5); URINE BACTERIA RARE (<OCC); URINE BILIRUBIN NEGATIVE (NEGATIVE); URINE BLOOD SMALL (NEGATIVE); URINE CLARITY SLIGHTY-CLOUDY (Clear); URINE COLOR YELLOW (YELLOW); URINE GLUCOSE (UA) NEG (Normal); URINE LEUKOCYTE ESTERASE NEG Leu/uL (Negative); URINE PROTEIN NEGATIVE (NEGATIVE); URINE UROBILINOGEN 0.2-1.0 mg/dL (0.2-1.0)
--- NOTE | 2017-12-21 04:48 | ED PDOC ---
- Laboratory Results Result Diagrams: 12/20/17 17:39 12/20/17 17:39 Urine POC: Negative - ECG O2 Sat by Pulse Oximetry: 99 (RA) - Progress ED Course And Treament: Case endorsed to script writer from Miguel JOHNSON pending [facility] psychiatric screening Patient evaluated by screener; meets criteria for commitment. pending available bed/transfer to [facility]. 4:45 Bed available. Arrangements made for transport Disposition - Clinical Impression Clinical Impression: Psychotic disorder with delusions - POA Present On Arrival: None - Disposition Disposition: Other Institution ([facility]) Disposition Time: 04:45 Condition: STABLE
[2017-12-21 05:15] VITALS: BP 122/84; PULSE 87; RESP 16; TEMP 98
--- NOTE | 2017-12-21 21:26 | CARD ---
APPROVED REPORT EKG Measurement Heart [id number] <Conclusion> Normal sinus rhythm with sinus arrhythmia Normal ECG
== END 2017-12-21 05:28 | disposition short-term general hospital (02) ==
LOC: H.ER 13:36
DX: F22 Delusional disorders (principal); R11.0 Nausea

== ENCOUNTER 2018-04-23 14:17 | Emergency (ER) | payer MEDICAID, OTHER ==
[2018-04-23 14:18] VITALS: BMI 21.2
--- NOTE | 2018-04-23 15:07 | ED PDOC ---
HPI: Psych/Substance Abuse Time Seen by Provider: 04/23/18 15:00 Chief Complaint (Nursing): Psychiatric Evaluation Chief Complaint (Provider): Crisis eval History Per: Patient Additional Complaint(s): Patient arrived with [facility] for psych evaluation. As per PD - patient was acting bizarre and speaking delusional [place] the park - evaluated on scene by mobile crisis and suggested to come to ED for evaluation. PT has a past medical history of delusional disorder and is currently homeless and is well known to the provider. Pt not answering questions appropriately at this time Past Medical History Reviewed: Historical Data, Nursing Documentation, Vital Signs, Unable To Obtain Vital Signs: Last Vital Signs Temp 99.6 F 04/23/18 14:24 Pulse 109 H 04/23/18 14:49 Resp 20 04/23/18 14:24 BP 128/34 L 04/23/18 14:24 Pulse Ox 100 04/23/18 14:24 - Medical History PMH: Denies: Diabetes, Hepatitis, HIV, HTN, Seizures, Sexually Transmitted Disease - Family History Family History: States: Unknown Family Hx - Living Arrangements Living Arrangements: Other (homless) - Home Medications Home Medications: Ambulatory Orders Medication Instructions Recorded No Known Home Med 04/23/18 - Allergies Allergies/Adverse Reactions: Allergies Allergy/AdvReac Type Severity Reaction Status Date / Time broccoli Allergy RASH Verified 04/23/18 14:24 levofloxacin [From Levaquin] Allergy RASH Verified 04/23/18 14:24 Review of Systems Review Of Systems: ROS cannot be obtained secondary to pt's inabilty to answer questions. Physical Exam - Reviewed Nursing Documentation Reviewed: Yes Vital Signs Reviewed: Yes - Physical Exam Appears: Positive for: Well, Non-toxic, No Acute Distress Head Exam: Positive for: ATRAUMATIC, NORMAL INSPECTION, NORMOCEPHALIC Skin: Positive for: Normal Color, Warm, DRY Eye Exam: Positive for: EOMI, Normal appearance, PERRL ENT: Positive for: Normal ENT Inspection Neck: Positive for: Normal, Painless ROM Cardiovascular/Chest: Positive for: Regular Rate, Rhythm Respiratory: Positive for: CNT, Normal Breath Sounds Gastrointestinal/Abdominal: Positive for: Normal Exam, Soft Back: Positive for: Normal Inspection Extremity: Positive for: Normal ROM Neurologic/Psych: Positive for: Alert - Laboratory Results Result Diagrams: 04/23/18 15:30 04/23/18 15:30 - ECG O2 Sat by Pulse Oximetry: 100 Medical Decision Making Medical Decision Making: Crisis made aware of eval. Pt placed on 1:1 CBC, COMP: WNL UDS (-) Alcohol < 10 U.Dip: (-) leuks, nites (+) trace blood Preg (-) EKG: NSR at 93 bpm, no axis deviation or acute ST elevations, as read by ALEX CXR: NAD, as read by ALEX Pt underwent crisis eval, see notes. [place] [facility] [place] Case endorsed to ALEX Messina at 1999 pending screening Disposition - Clinical Impression Clinical Impression: Delusional disorder - Patient ED Disposition Is Patient to be Admitted: Transfer of Care - Disposition Disposition: Transfer of Care Disposition Time: 18:41 Condition: STABLE Forms: [facility] (Indonesian) - POA Present On Arrival: None
[2018-04-23 15:34] LABS: BASO % 0.2 % (0.0-2.0); HEMOGLOBIN 11.7 g/dL (12.0-16.0); LYMPH # 0.9 K/uL (1.0-4.3); MEAN CELL VOLUME 88.4 fl (81.0-99.0); MEAN CORPUSCULAR HEMOGLOBIN 29.1 pg (27.0-31.0); MEAN CORPUSCULAR HGB CONC 32.9 g/dL (33.0-37.0); MEAN PLATELET VOLUME 7.7 fl (7.2-11.7); MONO # 0.3 K/uL (0.0-0.8); MONO % 4.4 % (0.0-10.0); NEUT # 6.6 K/uL (1.8-7.0); NEUT % 84.4 % (50.0-75.0); NRBC % 0.1 % (0.0-0.0); RBC 4.02 Mil/uL (3.80-5.20); RED CELL DISTRIBUTION WIDTH 14.8 % (11.5-14.5); WHITE BLOOD COUNT 7.8 K/uL (4.8-10.8)
[2018-04-23 15:43] LABS: ALB/GLOB RATIO 1.2 (1.0-2.1); ALBUMIN 4.5 g/dL (3.5-5.0); ALT/SGPT 20 U/L (9-52); AST/SGOT 25 U/L (14-36); BLOOD UREA NITROGEN 13 mg/dl (7-17); CALCIUM 9.5 mg/dL (8.4-10.2); GFR NON-AFRICAN AMERICAN > 60
[2018-04-23 15:48] LABS: BARBITURATES, UR NEGATIVE (NEGATIVE); BENZODIAZEPINES, UR NEGATIVE (NEGATIVE); OPIATES, UR NEGATIVE (NEGATIVE); PHENCYCLIDINE, UR NEGATIVE (NEGATIVE)
--- NOTE | 2018-04-23 16:40 | RAD ---
Date of service: 04/23/2018 PROCEDURE: CHEST RADIOGRAPH, 1 VIEW HISTORY: med screening COMPARISON: Chest radiograph dated 12/20/2017 FINDINGS: LUNGS: Clear. PLEURA: No pneumothorax or pleural fluid seen. CARDIOVASCULAR: Normal. OSSEOUS STRUCTURES: No significant abnormalities. VISUALIZED UPPER ABDOMEN: Normal. OTHER FINDINGS: None. IMPRESSION: No active disease.
[2018-04-23 18:46] LABS: SQUAMOUS EPITHIAL 1 /hpf (0-5); URINE BACTERIA RARE (<OCC); URINE BILIRUBIN NEGATIVE (NEGATIVE); URINE BLOOD NEGATIVE (NEGATIVE); URINE CLARITY CLEAR (Clear); URINE COLOR STRAW (YELLOW); URINE GLUCOSE (UA) NEG (Normal); URINE LEUKOCYTE ESTERASE NEG Leu/uL (Negative); URINE PROTEIN NEGATIVE (NEGATIVE); URINE UROBILINOGEN 0.2-1.0 mg/dL (0.2-1.0)
--- NOTE | 2018-04-23 21:33 | ED PDOC ---
- Laboratory Results Result Diagrams: 04/23/18 15:30 04/23/18 15:30 - ECG O2 Sat by Pulse Oximetry: 100 (RA) Pulse Ox Interpretation: Normal Medical Decision Making Medical Decision Making: Time: 20:00 Patient endorsed to me by ASIA Palma pending [facility] screening. Patient is calm and cooperative. Vital signs are normal and patient is medically cleared. 0030 Patient seen and evaluated by [facility] and will be admitted to their psych facility , at this time she is pending a bed. VSS. Patient has no complaints, she is calm and cooperative at this time. 0500 Patient is sleeping comfortably in no acute distress. Patient still pending a bed at [facility]. Scribe Attestation: Documented by, Suyapa Amezcua acting as a scribe for Tri Messina PA-C. Provider Scribe Attestation: All medical record entries made by the Scribe were at my direction and personally dictated by me. I have reviewed the chart and agree that the record accurately reflects my personal performance of the history, physical exam, medical decision making, and the department course for this patient. I have also personally directed, reviewed, and agree with the discharge instructions and disposition. Disposition - Clinical Impression Clinical Impression: Delusional disorder, Paranoid schizophrenia - POA Present On Arrival: None - Disposition Disposition: Other Institution (transfer to [facility]) Disposition Time: 00:30 Condition: STABLE Forms: [employer] (Albanian) - PA / DITCH REPAIRER / Resident Statement MD/DO has reviewed & agrees with the documentation as recorded.
--- NOTE | 2018-04-24 07:22 | ED PDOC ---
- Laboratory Results Result Diagrams: 04/23/18 15:30 04/23/18 15:30 - ECG O2 Sat by Pulse Oximetry: 100 (RA) Pulse Ox Interpretation: Normal - Progress ED Course And Treament: 952: Stable. Pending [facility] bed. Dr. Baxter to take over care. Medical Decision Making Medical Decision Making: Time: 0700 -- 42 y/o female brought to the ED by the [facility] for psychiatric evaluation , pending bed assignment at [facility]. Scribe Attestation: Documented by Max Ramos acting as a scribe for Dr. Delvin Londono MD. Provider Scribe Attestation: All medical record entries made by the Scribe were at my direction and personally dictated by me. I have reviewed the chart and agree that the record accurately reflects my personal performance of the history, physical exam, medical decision making, and the department course for this patient. I have also personally directed, reviewed, and agree with the discharge instructions and disposition. Disposition - Clinical Impression Clinical Impression: Delusional disorder, Paranoid schizophrenia - POA Present On Arrival: None - Disposition Disposition: Transfer of Care Disposition Time: 09:53 Condition: STABLE Patient Signed Over To: Liz Baxter
--- NOTE | 2018-04-24 11:21 | ED PDOC ---
- Laboratory Results Result Diagrams: 04/23/18 15:30 04/23/18 15:30 - ECG O2 Sat by Pulse Oximetry: 100 Disposition - Clinical Impression Clinical Impression: Delusional disorder, Paranoid schizophrenia - POA Present On Arrival: None - Disposition Disposition: Transfer of Care Disposition Time: 19:00 Condition: STABLE Patient Signed Over To: Delvin Londono Handoff Comments: Pending [facility] bed. Addendum Addendum: 04/24/18 11:[address] Pt [address] out [address] Londono pending [facility] bed.
--- NOTE | 2018-04-24 12:18 | CP.PCM.CON ---
History of Present Illness - History of Present Illness History of Present Illness: face to face evaluation Pt is a 42 year old, female transported by [employer] [facility] [employer], secondary to pt presenting "disorganized and yelling at by standers at a park in [place], [place]. 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 pt has no insight into illness, stating she is not in need of treatment, religiously preoccupied, and grandiose stating she was able to cure mental illness from earth, pt on further interviewing became irritable, agitated and verbally threatening Past Patient History - Past Social History Smoking Status: Never Smoked - CARDIAC Hx Hypertension: No - PULMONARY Hx Tuberculosis: No - NEUROLOGICAL Hx Seizures: No - HEMATOLOGICAL/ONCOLOGICAL Hx Human Immunodeficiency Virus (HIV): No - GENITOURINARY/GYNECOLOGICAL Hx Sexually Transmitted Disorders: No - PSYCHIATRIC Hx Substance Use: No - SURGICAL HISTORY Hx Surgeries: No Other/Comment: Pt denies - ANESTHESIA Hx Anesthesia: No Meds Allergies/Adverse Reactions: Allergies Allergy/AdvReac Type Severity Reaction Status Date / Time broccoli Allergy RASH Verified 04/23/18 14:24 levofloxacin [From Levaquin] Allergy RASH Verified 04/23/18 14:24 Physical Exam - Psychiatric Exam Additional comments: pt seen in bed, uncooperative, loud, angry mood irritable affect, loose association, alert awake oriented to person, poor insight and judgment Results - Vital Signs Recent Vital Signs: Last Vital Signs Temp 98.7 F 04/24/18 10:15 Pulse 72 04/24/18 10:15 Resp 13 04/24/18 10:15 BP 100/63 04/24/18 10:15 Pulse Ox 100 04/24/18 11:21 - Labs Result Diagrams: 04/23/18 15:30 04/23/18 15:30 Labs: Laboratory Results - last 24 hr 04/23/18 04/23/18 04/23/18 15:15 15:30 15:30 WBC 7.8 RBC 4.02 Hgb 11.7 L Hct 35.5 MCV 88.4 MCH 29.1 MCHC 32.9 L RDW 14.8 H Plt Count 291 MPV 7.7 Neut % (Auto) 84.4 H Lymph % (Auto) 11.[address] [place] % (Auto) 4.4 Eos % (Auto) 0.0 Baso % (Auto) 0.2 Neut # (Auto) 6.6 Lymph # (Auto) 0.[address] [place] # (Auto) 0.3 Eos # (Auto) 0.0 Baso # (Auto) 0.0 Sodium 139 Potassium 3.8 Chloride 105 Carbon Dioxide 20 L Anion Gap 18 BUN 13 Creatinine 0.9 Est GFR ( Amer) > 60 Est GFR (Non-Af Amer) > 60 Random Glucose 108 H Calcium 9.5 Total Bilirubin 0.3 AST 25 ALT 20 Alkaline Phosphatase 47 Total Protein 8.3 H Albumin 4.5 Globulin 3.8 Albumin/Globulin Ratio 1.2 Urine Color Urine Clarity Urine pH Ur Specific [place] Urine Protein Urine Glucose (UA) Urine Ketones Urine Blood Urine Nitrate Urine Bilirubin Urine Urobilinogen Ur Leukocyte Esterase Urine RBC (Auto) Urine Microscopic WBC Ur Squamous Epith Cells Urine Bacteria Urine Opiates Screen Negative Urine Methadone Screen Negative Ur Barbiturates Screen Negative Ur Phencyclidine Scrn Negative Ur Amphetamines Screen Negative U Benzodiazepines Scrn Negative U Oth Cocaine Metabols Negative U Cannabinoids Screen Negative Alcohol, Quantitative < 10 04/23/18 18:35 WBC RBC Hgb Hct MCV MCH MCHC RDW Plt Count MPV Neut % (Auto) Lymph % (Auto) [place] % (Auto) Eos % (Auto) Baso % (Auto) Neut # (Auto) Lymph # (Auto) [place] # (Auto) Eos # (Auto) Baso # (Auto) Sodium Potassium Chloride Carbon Dioxide Anion Gap BUN Creatinine Est GFR ( Amer) Est GFR (Non-Af Amer) Random Glucose Calcium Total Bilirubin AST ALT Alkaline Phosphatase Total Protein Albumin Globulin Albumin/Globulin Ratio Urine Color Straw Urine Clarity Clear Urine pH 6.0 Ur Specific [place] 1.010 Urine Protein Negative Urine Glucose (UA) Neg Urine Ketones Negative Urine Blood Negative Urine Nitrate Negative Urine Bilirubin Negative Urine Urobilinogen 0.2-1.0 Ur Leukocyte Esterase Neg Urine RBC (Auto) 3 Urine Microscopic WBC 1 Ur Squamous Epith Cells 1 Urine Bacteria Rare Urine Opiates Screen Urine Methadone Screen Ur Barbiturates Screen Ur Phencyclidine Scrn Ur Amphetamines Screen U Benzodiazepines Scrn U Oth Cocaine Metabols U Cannabinoids Screen Alcohol, Quantitative Assessment & Plan - Assessment and Plan (Free Text) Assessment: schizoaffective disorder bipolar Plan: pt at current mental status is disorganized, delusional psychotic, danger to self and others pt screened and accepted for involuntary admission for stabilization pt awaiting bed at [facility] recommend haldol 5mg q8prn for agitation ativan 2mg q8prn for anxiety benadryl 25mg q8 prn for EPS
--- NOTE | 2018-04-24 19:08 | ED PDOC ---
- Laboratory Results Result Diagrams: 04/23/18 15:30 04/23/18 15:30 - ECG O2 Sat by Pulse Oximetry: 100 Pulse Ox Interpretation: Normal - Progress ED Course And Treament: 1900: Stable. Took over care from Dr. Baxter. [facility]U [facility] bed. 2339: Dr. Gaxiola to take over care. Fu on [facility] bed. Disposition - Clinical Impression Clinical Impression: Delusional disorder, Paranoid schizophrenia - POA Present On Arrival: None - Disposition Disposition: Transfer of Care Disposition Time: 23:38 Condition: STABLE Patient Signed Over To: Thee Gaxiola
--- NOTE | 2018-04-25 09:02 | CP.PCM.CON ---
History of Present Illness - History of Present Illness History of Present Illness: Psychiatry consult follow-up note Patient continues to be psychotic, delusions, paranoid, talking about imposters and false imprisonment. She is labile, easily agitated and started yelling in a threatening manner at [employer] functional [employer]. Patient was screened and accepted for involuntary admission at [facility]. Diagnosis: Schizophrenia vs Schizoaffective Disorder Recommendations: -Zyprexa 10 mg IM stat -Continue 1:1 -Transfer to [facility] when bed is available Past Patient History - Past Social History Smoking Status: Never Smoked - CARDIAC Hx Hypertension: No - PULMONARY Hx Tuberculosis: No - NEUROLOGICAL Hx Seizures: No - HEMATOLOGICAL/ONCOLOGICAL Hx Human Immunodeficiency Virus (HIV): No - GENITOURINARY/GYNECOLOGICAL Hx Sexually Transmitted Disorders: No - PSYCHIATRIC Hx Substance Use: No - SURGICAL HISTORY Hx Surgeries: No Other/Comment: Pt denies - ANESTHESIA Hx Anesthesia: No Meds Allergies/Adverse Reactions: Allergies Allergy/AdvReac Type Severity Reaction Status Date / Time broccoli Allergy RASH Verified 04/23/18 14:24 levofloxacin [From Levaquin] Allergy RASH Verified 04/23/18 14:24 - Medications Medications: Current Medications Olanzapine (Zyprexa Inj) 10 mg IM ONCE ONE Stop: 04/25/18 08:49 Results - Vital Signs Recent Vital Signs: Last Vital Signs Temp 98.3 F 04/25/18 07:00 Pulse 80 04/25/18 07:00 Resp 17 04/25/18 07:00 BP 101/65 04/25/18 07:00 Pulse Ox 100 04/25/18 07:00 - Labs Result Diagrams: 04/23/18 15:30 04/23/18 15:30
--- NOTE | 2018-04-25 16:44 | ED PDOC ---
- Laboratory Results Result Diagrams: 04/23/18 15:30 04/23/18 15:30 - ECG O2 Sat by Pulse Oximetry: 100 Disposition - Clinical Impression Clinical Impression: Delusional disorder, Paranoid schizophrenia - POA Present On Arrival: None - Disposition Disposition: Other Institution Disposition Time: 16:44 Condition: STABLE
--- NOTE | 2018-04-25 17:33 | ED PDOC ---
- Laboratory Results Result Diagrams: 04/23/18 15:30 04/23/18 15:30 - ECG O2 Sat by Pulse Oximetry: 100 Disposition - Clinical Impression Clinical Impression: Delusional disorder, Paranoid schizophrenia - POA Present On Arrival: None - Disposition Disposition: Transfer of Care Disposition Time: 00:00 Condition: STABLE Forms: [facility] (Slovenian) Patient Signed Over To: Thee Gaxiola Addendum Addendum: 04/25/18 17:00 Pt signed out [address] Dr. Hendrickson pending [facility] [place].
--- NOTE | 2018-04-25 17:55 | CARD ---
APPROVED REPORT Date of service: 04/23/2018 EKG Measurement Heart [id number] <Conclusion> Normal sinus rhythm Normal ECG
[2018-04-25 19:40] VITALS: RESP 18
[2018-04-25 22:12] VITALS: BP 120/74; PULSE 92; TEMP 98.1
[2018-04-28 07:45] VITALS: O2SAT 100
== END 2018-04-25 22:11 | disposition short-term general hospital (02) ==
LOC: H.ER 14:17
DX: F20.0 Paranoid schizophrenia (principal); Z86.59 Personal history of other mental and behavioral disorders; Z59.0 Homelessness; Z00.8 Encounter for other general examination
CPT/HCPCS: 71045; 80053; 81003; 81025; 85025; 93005; 96372; 99285; G0480; J1630; J2060